=== PATIENT | female | born 1985 | race African-American/Black ===

== ENCOUNTER 2019-05-31 08:51 | Emergency (ER) | payer MEDICAID, OTHER ==
[~2019-05-31] VITALS: Ht 167.6 cm; Wt 79.0 kg
[~2019-05-31 08:51] MED LIST: METFORMIN
[2019-05-31] MEDS ORDERED: KETOROLAC 30MG/ML VIAL IV STA (09:40)
[2019-05-31 09:58] LABS: BASOPHILS % 0.6 % (0.0-2.0); EOSINOPHILS % 2.5 % (0.0-5.0); HEMATOCRIT. 40.5 % (36.0-48.0); HEMOGLOBIN. 13.8 g/dL (12.0-16.0); LYMPHOCYTES % 44.5 % (20.0-50.0); MEAN CORPUSCULAR HEMOGLOBIN 32.6 pg (28.0-32.0); MEAN CORPUSCULAR VOLUME 95.8 fL (81.0-99.0); MEAN PLATELET VOLUME 8.1 fl (7.4-10.4); MONOCYTES % 6.7 % (2.0-8.0); NEUTROPHILS % 45.7 % (40.0-76.0); PLATELET 236 x1000/uL (130-400); RED BLOOD CELL COUNT 4.23 mill/uL (4.2-5.4); RED CELL DISTRIBUTION WIDTH 13.4 % (11.6-14.6)
[2019-05-31 10:05] LABS: CHLORIDE 110 mEq/L (98-107)
[2019-05-31 11:55] VITALS: BP 138/81
== END 2019-05-31 12:04 | disposition home or self-care (01) ==
LOC: ER 08:51
DX: R09.1 Pleurisy (principal); F17.210 Nicotine dependence, cigarettes, uncomplicated; Z71.6 Tobacco abuse counseling
CPT/HCPCS: 36415; 71045; 80053; 83880; 84484; 85025; 85379; 93005; 96374; 99284; 99406; J1885

== ENCOUNTER 2019-06-23 10:58 | Emergency (ER) | payer MEDICAID ==
[~2019-06-23] VITALS: Ht 167.6 cm; Wt 79.0 kg
[2019-06-23 15:11] LABS: BASOPHILS % 0.5 % (0.0-2.0); EOSINOPHILS % 1.6 % (0.0-5.0); HEMATOCRIT. 44.7 % (36.0-48.0); HEMOGLOBIN. 15.2 g/dL (12.0-16.0); LYMPHOCYTES % 31.7 % (20.0-50.0); MEAN CORPUSCULAR HEMOGLOBIN 32.7 pg (28.0-32.0); MEAN CORPUSCULAR VOLUME 96.3 fL (81.0-99.0); MONOCYTES % 3.6 % (2.0-8.0); NEUTROPHILS % 62.6 % (40.0-76.0); PLATELET 268 x1000/uL (130-400); RED BLOOD CELL COUNT 4.65 mill/uL (4.2-5.4); RED CELL DISTRIBUTION WIDTH 13.3 % (11.6-14.6)
[2019-06-23 15:19] LABS: CHLORIDE 107 mEq/L (98-107)
[2019-06-23 16:20] VITALS: BP 128/75
== END 2019-06-23 16:32 | disposition home or self-care (01) ==
LOC: ER 10:58
DX: R05 Cough (principal); L30.9 Dermatitis, unspecified; R06.02 Shortness of breath; R07.0 Pain in throat; R11.10 Vomiting, unspecified; R51 Headache; R21 Rash and other nonspecific skin eruption; E11.9 Type 2 diabetes mellitus without complications; I51.9 Heart disease, unspecified; Z98.890 Other specified postprocedural states; Z88.6 Allergy status to analgesic agent
CPT/HCPCS: 36415; 71045; 99284

== ENCOUNTER 2020-04-10 20:30 | Emergency (ER) | payer MEDICAID ==
[~2020-04-10] VITALS: Ht 167.6 cm; Wt 81.0 kg
[2020-04-10 20:38] VITALS: BP 152/93
== END 2020-04-10 22:17 | disposition left against medical advice (07) ==
LOC: ER 20:30
DX: Z53.21 Procedure and treatment not carried out due to patient leaving prior to being seen by health care provider (principal); R51 Headache; H57.89 Other specified disorders of eye and adnexa
CPT/HCPCS: 82962

== ENCOUNTER 2022-10-01 13:14 | Emergency (ER) | payer MEDICAID ==
[~2022-10-01] VITALS: Ht 167.6 cm; Wt 66.0 kg
[2022-10-01 13:29] VITALS: BP 145/78
[2022-10-02] MEDS ORDERED: LIDO700A15 TP (04:33)
== END 2022-10-01 18:45 | disposition left against medical advice (07) ==
LOC: ER 13:14
DX: Z53.21 Procedure and treatment not carried out due to patient leaving prior to being seen by health care provider (principal)

== ENCOUNTER 2022-10-02 00:48 | Emergency (ER) | payer MEDICAID, OTHER ==
[~2022-10-02] VITALS: Ht 165.1 cm; Wt 64.0 kg
[2022-10-02 01:20] LABS: BASOPHILS % 0.5 % (0.0-2.0); EOSINOPHILS % 1.5 % (0.0-5.0); HEMATOCRIT. 36.1 % (36.0-48.0); HEMOGLOBIN. 11.7 g/dL (12.0-16.0); LYMPHOCYTES % 31.5 % (20.0-50.0); MEAN CORPUSCULAR HEMOGLOBIN 29.1 pg (28.0-32.0); MEAN CORPUSCULAR VOLUME 90.2 fL (81.0-99.0); MEAN PLATELET VOLUME 6.8 fl (7.4-10.4); MONOCYTES % 9.5 % (2.0-8.0); PLATELET 342 x1000/uL (130-400); RED CELL DISTRIBUTION WIDTH 14.1 % (11.6-14.6)
[2022-10-02 01:28] LABS: CHLORIDE 105 mEq/L (98-107)
[2022-10-02 01:59] LABS: CLARITY URINE CLOUDY (CLEAR); COLOR URINE YELLOW (YELLOW); KETONES URINE NEGATIVE (NEGATIVE); LEUKOCYTE ESTERASE URINE NEGATIVE (NEGATIVE); NITRITE URINE NEGATIVE (NEGATIVE); OCCULT BLOOD URINE NEGATIVE (NEGATIVE); PROTEIN URINE NEGATIVE (NEGATIVE); SPECIFIC GRAVITY URINE 1.016 (1.005-1.030)
[2022-10-02] MEDS ORDERED: LIDOCAINE 5% PATCH TOP SCH (04:30)
[2022-10-02] MEDS ORDERED: LIDO700A15 TP (04:33)
[2022-10-02 05:23] VITALS: BP 143/89
== END 2022-10-02 05:25 | disposition home or self-care (01) ==
LOC: ER 00:48
DX: R07.89 Other chest pain (principal); M62.838 Other muscle spasm; I10 Essential (primary) hypertension; E11.9 Type 2 diabetes mellitus without complications; Z98.890 Other specified postprocedural states
CPT/HCPCS: 36415; 71045; 80053; 81003; 83880; 84484; 85025; 86592; 86593; 86780; 93005; 99285

== ENCOUNTER 2023-09-04 11:51 | Emergency (ER) | payer SELFPAY ==
[~2023-09-04] VITALS: Ht 165.1 cm; Wt 65.8 kg
[~2023-09-04 11:51] MED LIST changes: +LIDO700A15 TP
[2023-09-04 12:00] VITALS: BP 132/82; PULSE 68; RESP 16; TEMP 98.2; O2SAT 100
== END 2023-09-04 15:57 | disposition left against medical advice (07) ==
LOC: ER 11:51
DX: R05.9 Cough, unspecified (principal); Z53.21 Procedure and treatment not carried out due to patient leaving prior to being seen by health care provider
CPT/HCPCS: 99281

== ENCOUNTER 2023-09-14 00:40 | Emergency (ER) | payer MEDICAID ==
[~2023-09-14] VITALS: Ht 165.1 cm; Wt 66.0 kg
[2023-09-14 00:57] VITALS: O2SAT 98
[2023-09-14 01:58] LABS: BASOPHILS % 0.7 % (0.0-2.0); EOSINOPHILS % 2.1 % (0.0-5.0); HEMATOCRIT. 35.7 % (36.0-48.0); HEMOGLOBIN. 12.1 g/dL (12.0-16.0); MEAN CORPUSCULAR HEMOGLOBIN 31.2 pg (28.0-32.0); MEAN CORPUSCULAR VOLUME 91.8 fL (81.0-99.0); MEAN PLATELET VOLUME 7.6 fl (7.4-10.4); MONOCYTES % 6.4 % (2.0-8.0); NEUTROPHILS % 33.8 % (40.0-76.0); PLATELET 309 x1000/uL (130-400); RED BLOOD CELL COUNT 3.89 mill/uL (4.2-5.4); WHITE BLOOD COUNT 5.5 x1000/uL (4.5-11.0)
[2023-09-14] MEDS ORDERED: ONDANSETRON HCL 4MG TABLET PO ONE (02:00)
[2023-09-14 02:12] LABS: ALANINE AMINOTRANSFERASE 43 IU/L (10-49); ALBUMIN 3.5 g/dL (3.2-4.8); ASPARTATE AMINOTRANSFERASE 56 IU/L (<34); BILIRUBIN TOTAL 0.3 mg/dL (0.1-1.0); CALCIUM 8.4 mg/dL (8.7-10.4); CARBON DIOXIDE 20 mEq/L (21-32); CHLORIDE 108 mEq/L (98-107); CREATININE 0.7 mg/dL (0.6-1.0); GLUCOSE 135 mg/dL (70-105); POTASSIUM 3.8 mEq/L (3.5-5.1); PROTEIN TOTAL 6.8 g/dL (6.0-8.3); SODIUM 139 mEq/L (136-145); UREA NITROGEN BLOOD 9 mg/dL (9-23)
[2023-09-14 03:45] LABS: CLARITY URINE CLOUDY (CLEAR); COLOR URINE YELLOW (YELLOW); GLUCOSE URINE NEGATIVE (NEGATIVE); KETONES URINE TRACE (NEGATIVE); LEUKOCYTE ESTERASE URINE TRACE (NEGATIVE); NITRITE URINE NEGATIVE (NEGATIVE); OCCULT BLOOD URINE NEGATIVE (NEGATIVE); PROTEIN URINE TRACE (NEGATIVE); SPECIFIC GRAVITY URINE 1.023 (1.005-1.030)
[2023-09-14 04:02] LABS: UCG SCREEN NEGATIVE
[2023-09-14] MEDS: ONDANSETRON HCL 4MG TABLET PO NR ×3 (04:05→05:00)
[2023-09-14] MEDS ORDERED: KETOROLAC 60MG/2ML VIAL IM ONE (04:30)
[2023-09-14] MEDS ORDERED: NAPR275T96 MT (04:34)
[2023-09-14] MEDS ORDERED: ONDA4TAB50 MT (04:34)
[2023-09-14 05:01] VITALS: BP 117/78; PULSE 73; RESP 18; TEMP 98.5
[2023-09-14 05:13] LABS: SQUAMOUS EPITHELIAL CELL URINE 2+ /lpf (RARE/1+)
[2023-09-14 05:25] LABS: RBC URINE 0-2 /hpf (0-2)
[2023-09-14 05:26] LABS: BACTERIA URINE TRACE
== END 2023-09-14 05:02 | disposition home or self-care (01) ==
LOC: ER 00:40
DX: K80.20 Calculus of gallbladder without cholecystitis without obstruction (principal); R19.7 Diarrhea, unspecified; E11.9 Type 2 diabetes mellitus without complications; I10 Essential (primary) hypertension; F12.10 Cannabis abuse, uncomplicated
CPT/HCPCS: 99285; 76705; 80053; 81003; 81025; 83690; 85025; 36415; 93005; 96372; Q0162; J1885

== ENCOUNTER 2024-09-03 17:58 | Emergency (ER) | payer MEDICAID ==
[~2024-09-03] VITALS: Ht 170.2 cm; Wt 71.8 kg
[~2024-09-03 17:58] MED LIST changes: +NAPR275T96 MT; +ONDA4TAB50 MT
[2024-09-03 18:01] VITALS: O2SAT 99
[2024-09-03 18:07] VITALS: BP 115/83; PULSE 89; RESP 16; TEMP 98.8; O2SAT 100
[2024-09-03] MEDS ORDERED: DIPHENHYDRAMINE 25MG CAPSULE PO ONE (21:15)
[2024-09-03] MEDS ORDERED: BENZ1LOZ52 MT (23:03)
[2024-09-03] MEDS ORDERED: ACET-2708 MT (23:03)
[2024-09-03] MEDS ORDERED: AMOX1TAB16 MT (23:04)
[2024-09-03] MEDS ORDERED: DIPHENHYDRAMINE 25MG CAPSULE PO NR (23:30)
== END 2024-09-03 23:29 | disposition home or self-care (01) ==
LOC: ER 17:58
DX: R07.0 Pain in throat (principal); E11.9 Type 2 diabetes mellitus without complications; I10 Essential (primary) hypertension; Z98.890 Other specified postprocedural states; Z88.5 Allergy status to narcotic agent
CPT/HCPCS: 99283